=== PATIENT | male | born 1980 | race Caucasian/White ===

== ENCOUNTER 2020-02-18 19:30 | Emergency (ER) | payer OTHER ==
[2020-02-18 21:03] LABS: Basophils % 0.5 % (0-1.3); Hematocrit 43.2 % (39.6-49.0); Lymphocytes % 18.3 % (15.3-44.8); MPV 8.2 fL (7.6-11.3); RBC Red Blood Cell Count 4.55 M/uL (4.33-5.43)
[2020-02-18] MEDS ORDERED: NA CHLORIDE 0.9% 1,000 ML ONE (21:05)
[2020-02-18] MEDS ORDERED: LORazepam 2 MG/ML VIAL ONE (21:05)
[2020-02-18 21:20] LABS: ALT/SGPT 60 U/L (12-78); AST/SGOT 37 U/L (15-37); Albumin 4.3 g/dL (3.4-5.0); Alkaline Phosphatase 56 U/L (45-117); BUN Blood Urea Nitrogen 15 mg/dL (7-18); Bicarbonate 25 mmol/L (21-32); Bilirubin Direct 0.2 mg/dL (0-0.2); Bilirubin Total 1.1 mg/dL (0.2-1.0); Glucose Level 109 mg/dL (74-106); Potassium 3.4 mmol/L (3.5-5.1); Protein, Total 8.3 g/dL (6.4-8.2); Sodium Level 138 mmol/L (136-145)
--- NOTE | 2020-02-18 21:47 | EDPHYS ---
Physician Documentation [facility] Name: Jai Liu Jr Age: 39 yrs Sex: Male : 1980 Arrival Date: 02/18/2020 Time: 19:31 Bed 13 Private MD: ED Physician Garo Conklin HPI: 02/17 21:53 This 39 yrs old Male presents to ER via Ambulatory with complaints of Alcohol tw4 Withdrawal. 21:53 The patient presents to the emergency department with a history of substance abuse, tw4 Type: vodka, 0.5 bottles per day. Onset: The symptoms/episode began/occurred at an unknown time. pt states that he stopped drinking more than 24 hours ago and feels "shaky". Past psychiatric history: Prior diagnosis: addiction history, alcohol. Associated signs and symptoms: Pertinent positives; nausea, tremor. Severity of symptoms: At their worst the symptoms were moderate in the emergency department the symptoms have improved. The patient has not experienced similar symptoms in the past. Historical: - Allergies: 19:59 Erythromycin; jd3 - Home Meds: 19:59 None [Active]; jd3 - PMHx: 20:00 Alcoholism; jd3 - PSHx: 19:59 None; jd3 - Immunization history:: Adult Immunizations up to date. - Social history:: Smoking status: Patient reports the use of cigarette tobacco products, denies chronic smoking, but will smoke occasionally. ROS: 21:53 Constitutional: Negative for fever, chills, and weight loss, Eyes: Negative for injury, tw4 pain, redness, and discharge, Cardiovascular: Negative for chest pain, palpitations, and edema, Respiratory: Negative for shortness of breath, cough, wheezing, and pleuritic chest pain, Abdomen/GI: Negative for abdominal pain, nausea, vomiting, diarrhea, and constipation, Back: Negative for injury and pain, MS/Extremity: Negative for injury and deformity, Skin: Negative for injury, rash, and discoloration, Neuro: Negative for headache, weakness, numbness, tingling, and seizure. 21:53 Psych: Positive for alcohol dependence, Negative for anxiety, depression, drug dependence, homicidal ideation, suicide gesture, suicidal ideation. Exam: 21:53 Constitutional: This is a well developed, well nourished patient who is awake, alert, tw4 and in no acute distress. Head/Face: Normocephalic, atraumatic. Chest/axilla: Normal chest wall appearance and motion. Nontender with no deformity. No lesions are appreciated. Cardiovascular: Regular rate and rhythm with a normal S1 and S2. No gallops, murmurs, or rubs. Normal PMI, no JVD. No pulse deficits. Respiratory: Lungs have equal breath sounds bilaterally, clear to auscultation and percussion. No rales, rhonchi or wheezes noted. No increased work of breathing, no retractions or nasal flaring. Abdomen/GI: Soft, non-tender, with normal bowel sounds. No distension or tympany. No guarding or rebound. No evidence of tenderness throughout. Back: No spinal tenderness. No costovertebral tenderness. Full range of motion. MS/ Extremity: Pulses equal, no cyanosis. Neurovascular intact. Full, normal range of motion. Neuro: Awake and alert, GCS 15, oriented to person, place, time, and situation. Cranial nerves II-XII grossly intact. Motor strength 5/5 in all extremities. Sensory grossly intact. Cerebellar exam normal. Normal gait. Psych: Awake, alert, with orientation to person, place and time. Behavior, mood, and affect are within normal limits. Vital Signs: 19:58 BP 159 / 104; Pulse 101; Resp 16 S; Temp 99.5(O); Pulse Ox 100% on R/A; Weight 83.91 kg jd3 (R); Height 5 ft. 5 in. (165.10 cm) (R); Pain 7/10; 20:14 BP 134 / 91; Pulse 84; Resp 18; Pulse Ox 98% ; Pain 7/10; ks7 21:15 BP 137 / 90; Pulse 85; Resp 18; Temp 99(TE); Pulse Ox 97% on R/A; Pain 5/10; ks7 22:05 BP 131 / 89; Pulse 112; Resp 18 S; Pulse Ox 98% on R/A; dh4 22:54 BP 149 / 88; Pulse 89; Resp 18; Temp 98.2(TE); Pulse Ox 99% on R/A; Pain 0/10; ks7 19:58 Body Mass Index 30.79 (83.91 kg, 165.10 cm) jd3 MDM: 19:46 Patient medically screened. tw4 21:53 Differential diagnosis: ETOH dependence, alcohol withdrawal. Data reviewed: vital tw4 signs, nurses notes. Data interpreted: Pulse oximetry: Interpretation: normal. Counseling: I had a detailed discussion with the patient and/or guardian regarding: the historical points, exam findings, and any diagnostic results supporting the discharge/admit diagnosis. Medication response: ativan. Response to treatment: the patient's symptoms have markedly improved after treatment, and as a result, I will discharge patient. Special discussion: I discussed with the patient/guardian in detail that at this point there is no indication for admission to the hospital. It is understood, however, that if the symptoms persist or worsen the patient needs to return immediately for re-evaluation. 02/17 20:42 Order name: Basic Metabolic Panel; Complete Time: 21:24 tw4 02/17 21:24 Interpretation: Normal except: K 3.4; GLUC 109. tw4 02/17 20:42 Order name: CBC with Diff; Complete Time: 21:18 tw4 02/17 21:18 Interpretation: Normal except: MN% 13.8. tw02/17 20:42 Order name: Hepatic Function; Complete Time: 21:24 tw4 02/17 21:24 Interpretation: Normal except: BILIT 1.1; TP 8.3; GLOB 4.0. tw02/17 20:42 Order name: IV Saline Lock; Complete Time: 21:01 tw4 02/17 20:42 Order name: Labs collected and sent; Complete Time: 21:01 Administered Medications: 21:01 Drug: NS 0.9% 1000 ml Route: IV; Rate: 1 bolus; Site: right antecubital; ks7 21:02 Drug: Ativan 1 mg Route: IVP; Site: right antecubital; ks7 Disposition: 02/18/20 21:46 Discharged to Home. Impression: Alcohol dependence with withdrawal, unspecified. - Condition is Stable. - Discharge Instructions: Alcohol Use Disorder, Alcohol Withdrawal, [id number], What You Need to Know About Alcohol Abuse and Dependence, Youth. - Prescriptions for chlordiazepoxide HCl 5 mg Oral capsule - take 1 capsule by ORAL route 1-2 times daily; 15 capsule. - Medication Reconciliation Form, Thank You Letter, Antibiotic Education, Prescription Opioid Use form. - Follow up: Private Physician; When: Upon discharge from the Emergency Department; Reason: Recheck today's complaints, Continuance of care, Re-evaluation by your physician. - Problem is new. - Symptoms have improved. Signatures: Dispatcher [employer] Axel Pham RN RN jGaro Castro MD MD tw4 Araceli Rueda RN RN ks7 Corrections: (The following items were deleted from the chart) 20:00 19:59 PMHx: None; nhung hooker 22:56 21:46 02/18/2020 21:46 Discharged to Home. Impression: Alcohol dependence with ks7 withdrawal, unspecified. Condition is Stable. Forms are Medication Reconciliation Form, Thank You Letter, Antibiotic Education, Prescription Opioid Use. Follow up: Private Physician; When: Upon discharge from the Emergency Department; Reason: Recheck today's complaints, Continuance of care, Re-evaluation by your physician. Problem is new. Symptoms have improved. tw4
--- NOTE | 2020-02-18 21:47 | ER ---
Nurse's Notes [facility] Name: Jai Liu Jr Age: 39 yrs Sex: Male : 1980 Arrival Date: 02/18/2020 Time: 19:31 Bed 13 Private MD: Diagnosis: Alcohol dependence with withdrawal, unspecified Presentation: 02/17 19:53 Chief complaint: Patient states: "I am an alcoholic. I drink vodka like it is water. jd3 well recently I decided to stop. My family sat me down and we had a come to [facility]. It was getting really bad where I would even show up to work drunk. well I stopped yesterday and threw out all of the alcohol, but now I think I am having withdraws. I am hurting everywhere, not sleeping well, and just not feeling to good.". Coronavirus screen: Proceed with normal triage. Ebola Screen: Patient negative for fever greater than or equal to 101.5 degrees Fahrenheit, and additional compatible Ebola Virus Disease symptoms. Initial Sepsis Screen: Does the patient meet any 2 criteria? No. Patient's initial sepsis screen is negative. Does the patient have a suspected source of infection? No. Patient's initial sepsis screen is negative. Risk Assessment: Do you want to hurt yourself or someone else? Patient reports no desire to harm self or others. Onset of symptoms was February 18, 2020. 19:53 Method Of Arrival: Ambulatory [facility] 19:53 Acuity: UMAIR 3 jd3 Triage Assessment: 20:14 General: Appears in no apparent distress. uncomfortable, Behavior is cooperative, ks7 anxious. Pain: Complains of pain in generalized Pain currently is 7 out of 10 on a pain scale. Quality of pain is described as discomfort. Historical: - Allergies: 19:59 Erythromycin; jd3 - Home Meds: 19:59 None [Active]; jd3 - PMHx: 20:00 Alcoholism; jd3 - PSHx: 19:59 None; jd3 - Immunization history:: Adult Immunizations up to date. - Social history:: Smoking status: Patient reports the use of cigarette tobacco products, denies chronic smoking, but will smoke occasionally. Screenin:17 Abuse screen: Denies threats or abuse. Denies injuries from another. Nutritional ks7 screening: No deficits noted. Tuberculosis screening: No symptoms or risk factors identified. Fall Risk None identified. Assessment: 20:17 General: Reports feeling ill for 12-24 hours, pt comes in from home for ETOH ks7 withdrawal. pt states his last drink was 24-27 hours ago. pt has appt for outpt rehab on Thursday but is uncomfortable, starting to go through withdrawals. PT reports drinking \\R\\ 1 L of vodka daily. pt calm and cooperative. mild tremor to hands, sweaty, body aches, mild nausea, no COX, no hallucinations. 22:55 Reassessment: Patient states feeling better. ks7 Vital Signs: 19:58 BP 159 / 104; Pulse 101; Resp 16 S; Temp 99.5(O); Pulse Ox 100% on R/A; Weight 83.91 kg jd3 (R); Height 5 ft. 5 in. (165.10 cm) (R); Pain 7/10; 20:14 BP 134 / 91; Pulse 84; Resp 18; Pulse Ox 98% ; Pain 7/10; ks7 21:15 BP 137 / 90; Pulse 85; Resp 18; Temp 99(TE); Pulse Ox 97% on R/A; Pain 5/10; ks7 22:05 BP 131 / 89; Pulse 112; Resp 18 S; Pulse Ox 98% on R/A; dh4 22:54 BP 149 / 88; Pulse 89; Resp 18; Temp 98.2(TE); Pulse Ox 99% on R/A; Pain 0/10; ks7 19:58 Body Mass Index 30.79 (83.91 kg, 165.10 cm) jd3 ED Course: 19:31 Patient arrived in ED. ds1 19:43 Araceli Rueda, RN is Primary Nurse. ks7 19:46 Garo Conklin MD is Attending Physician. tw4 19:58 Triage completed. jd3 19:58 Arm band placed on. jd3 20:17 Patient has correct armband on for positive identification. Bed in low position. Call ks7 light in reach. Side rails up X2. 20:17 No provider procedures requiring assistance completed. Patient did not have IV access ks7 during this emergency room visit. 20:58 Inserted saline lock: 20 gauge in right antecubital area, using aseptic technique. dh4 21:01 Basic Metabolic Panel Sent. ks7 21: CBC with Diff Sent. ks7 21: Hepatic Function Sent. ks7 22:55 Resting quietly. ks7 22:55 IV discontinued, intact, bleeding controlled, No redness/swelling at site. Pressure ks7 dressing applied. Administered Medications: 21:01 Drug: NS 0.9% 1000 ml Route: IV; Rate: 1 bolus; Site: right antecubital; ks7 21:02 Drug: Ativan 1 mg Route: IVP; Site: right antecubital; ks7 Outcome: 21:46 Discharge ordered by . tw4 22:55 Discharged to home ambulatory, with family. ks7 22:55 Condition: improved 22:55 Discharge instructions given to patient, Instructed on discharge instructions, medication usage, Demonstrated understanding of instructions, medications, Prescriptions given X 1. 22:56 Patient left the ED. ks7 Signatures: Cherelle Nevarez ds1 Axel Guerrero RN RN Garo Sequeira MD MD tw4 Edson Palomo 4 Araceli Rueda, SUZANNE RN ks7 Corrections: (The following items were deleted from the chart) 20:00 19:59 PMHx: None; nhung hooker
[2020-02-18 23:11] VITALS: BP 149/88; TEMP 98.2; O2SAT 99
== END 2020-02-18 22:56 | disposition home or self-care (01) ==
LOC: ER 19:30
DX: F10.239 Alcohol dependence with withdrawal, unspecified (principal); Z72.0 Tobacco use; Z88.3 Allergy status to other anti-infective agents
CPT/HCPCS: 85025; 80048; 36415; 80076; 96374; 99284; J7030